=== PATIENT | female | born 1955 | race Caucasian/White ===

== ENCOUNTER 2021-08-30 07:35 | Outpatient (CLI) | payer MEDICARE, OTHER | END 2021-08-30 07:36 | disposition home or self-care (01) | LOC: CSHMAMMO 07:35 | PROVIDERS: ATTEND Family Medicine | DX: Z12.31 Encounter for screening mammogram for malignant neoplasm of breast (principal); Z13.820 Encounter for screening for osteoporosis; E28.39 Other primary ovarian failure | CPT/HCPCS: 77063; 77067; 77080 ==

== ENCOUNTER 2022-01-10 17:42 | Emergency (ER) | payer MEDICARE, OTHER | END 2022-01-10 20:40 | disposition home or self-care (01) | LOC: CSHERS 17:42 | DX: K57.32 Diverticulitis of large intestine without perforation or abscess without bleeding (principal); E78.5 Hyperlipidemia, unspecified; I10 Essential (primary) hypertension | CPT/HCPCS: 74176 ==

== ENCOUNTER 2022-03-04 12:09 | Outpatient (CLI) | payer MEDICARE, OTHER | END 2022-03-04 12:10 | disposition home or self-care (01) | LOC: CSHULT 12:09 | PROVIDERS: ATTEND Internal Medicine Gastroenterology | DX: R10.11 Right upper quadrant pain (principal); K57.92 Diverticulitis of intestine, part unspecified, without perforation or abscess without bleeding; Z86.010 Personal history of colon polyps; K76.9 Liver disease, unspecified | CPT/HCPCS: 76705 ==